=== PATIENT | male | born 1945 | race Caucasian/White ===

== ENCOUNTER → 2018-10-15 10:24 | Outpatient (CLI) | payer OTHER, SELFPAY ==
--- NOTE | 2018-10-15 15:06 | P.PCN_ITS ---
Cardiac Stress Test Report Referral & Results Date Patient Seen: 10/15/18 Requesting provider: Sruthi Cooney Indication: Chest pain, dyspnea, history CABG Rest ECG: Unremarkable except for frequent PVCs Procedure Note: Today following both written and verbal informed consent the patient was exercised according to a standard Vik protocol patient went for a total of 6 min 49 sec achieving a maximum heart rate of 143 maximum systolic blood pressure of 180. This is approximately 7.0 METS. Exercise was terminated at this point because of patient has severe dyspnea inability to continue. Patient was also given Cardiolite through a previously started Hep-Lock IV by the nuclear plant instrument technician approximately 1 minute prior to the cessation of exercise. Patient did have frequent multifocal PVCs including couplets triplets and a run of 4 in recovery Heart rate blood pressure response was normal During exercise patient it is conduction transitioned into a left bundle branch block pattern which persisted until his heart rate declined in recovery unit flip back to normal ventricular conduction Functional aerobic impairment rated 0 on the active scale Impression: No clear evidence of ischemia. Dysrhythmia and conduction change noted as above Excellent exercise capacity Perfusion imaging will be reported separately Patient clearly has COPD as well based on his clinical picture with wheezing dyspnea etc while exercising. Please note: Actual ECG tracings can be found in the PACS system.
--- NOTE | 2018-10-16 09:52 | DI.NM.S_ITS ---
DATE OF SERVICE: 10/15/2018 PROCEDURE: Exercise perfusion study. INDICATION: Chest pain with known history of coronary artery disease (CAD), status post re-do bypass surgery, hypertension, hyperlipidemia. RADIOPHARMACEUTICAL: 25.3 mCi technetium-99 Myoview IV was injected at stress and 14.2 mCi technetium-99 Myoview IV was injected at rest. CARDIAC STRESS: The patient underwent an exercise perfusion study under the supervision of an attending staff. He walked on Vik protocol for 6 minutes and 49 seconds and achieved 97% of target heart rate, normal blood pressure response, 7 minutes of workload, and 0% of functional aerobic impairment. The patient had significant shortness of breath. He was unable to continue on treadmill. Baseline rhythm was sinus. During exercise, the patient had frequent PVCs with occasional ventricular couplets without any significant sustained ventricular tachycardia. During exercise, the patient developed rate related aberrant conduction with wide QRS complexes, almost left bundle branch block type of pattern. At rest, the patient has narrow QRS complexes. RAW DATA: There was an increase of diaphragmatic activity. GATED STUDY: Stress and resting LV ejection fraction 63% without any significant wall motion abnormalities. No transient ischemic dilatation. TID ratio 1.08. Resting end-diastolic volume 121 mL. Lung/heart ratio is 0.54, which is abnormal. MYOCARDIAL PERFUSION: Stress supine, resting supine, and stress prone images were compared to each other. It appears to be that the patient has predominantly fixed small sized mildly decreased perfusion of the basal inferior wall extending into the basal inferior septum. No reversible ischemia. CONCLUSION: 1. No obvious reversible ischemia. 2. 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 The patient achieved 7 minutes of workload, walked on Vik protocol for 6 minutes 49 seconds. Aberrant conduction during exercise with intermittent PVCs without any sustained ventricular tachycardia. No obvious transient ischemic dilatation, but lung/heart ratio is abnormal, which is 0.54, suggestive that the patient may have diastolic dysfunction or valvular pathology with increased LVEDP causing abnormal lung/heart ratio. We will recommend getting an echocardiogram to rule out valvular pathology or significant diastolic dysfunction. Clinical correlation is recommended. Killian Lockhart - JEANMARIE/elaine/ts doc#: [id number]/job#: [id number] dd: 10/15/2018 17:06:00 dt: 10/16/2018 09:35:00 DICTATING MD/COPIES TO: Hemant Monteiro MD COPIES MNE: DEMETRIA
== END ==
PROVIDERS: Family Provider Internal Medicine; PCP Internal Medicine; Visit Provider Internal Medicine
DX: R07.9 Chest pain, unspecified (principal); I25.10 Atherosclerotic heart disease of native coronary artery without angina pectoris; I10 Essential (primary) hypertension; E78.5 Hyperlipidemia, unspecified; R06.00 Dyspnea, unspecified; I49.3 Ventricular premature depolarization; J44.9 Chronic obstructive pulmonary disease, unspecified; Z95.1 Presence of aortocoronary bypass graft
CPT/HCPCS: 78452; 93016; 93017; 93018; A9502

== ENCOUNTER → 2021-01-14 11:57 | Outpatient (CLI) | payer MEDICARE, SELFPAY ==
[2021-01-14 12:51] LABS: Add Manual Diff / Slide Review NO; Basophils Absolute Auto 100 /uL (0-100); Basophils Percent Auto 0.8 % (0-2); Eosinophils Absolute Auto 300 /uL (0-450); Eosinophils Percent Auto 3.3 % (2-4); Hematocrit 42.5 % (41-53); Hemoglobin 14.4 g/dL (13.5-17.5); Lymphocytes Absolute Auto 2700 /uL (1100-4500); Lymphocytes Percent Auto 30.2 % (25-40); Mean Corpuscular HGB Conc 33.8 % (30-36); Mean Corpuscular Volume 91.6 fL (80-100); Monocytes Absolute Auto 700 /uL (0-900); Monocytes Percent Auto 8.2 % (3-14); Neutrophils Absolute Auto 5200 /uL (1500-7000); Neutrophils Percent Auto 57.5 % (50-75); Platelet Count 199 X10^3/uL (150-400); Red Blood Cell Count 4.64 X10^6/uL (4.5-5.9); Red Cell Distribution Width 13.7 % (11.6-14.8)
[2021-01-14 13:00] LABS: Hemoglobin A1C% w Est Avg Glu 5.7 % (4.0-6.0)
[2021-01-14 15:24] LABS: Alanine Aminotransferase 21 IU/L (<50); Albumin 4.2 g/dL (3.5-5.0); Albumin Globulin Ratio 1.6 (1.0-2.8); Alkaline Phosphatase 79 U/L (38-126); Aspartate Aminotransferase 30 IU/L (17-59); BUN Creatinine Ratio 23.7 (6-22); Bilirubin Total 0.7 mg/dL (0.2-1.3); Blood Urea Nitrogen 18 mg/dL (9-20); Calcium 9.7 mg/dL (8.4-10.2); Carbon Dioxide 29 mmol/L (22-32); Chloride 104 mmol/L (98-107); Cholesterol 182 mg/dL (140-199); Estimated Glomerular Filt Rate > 60.0 mL/min (>60); Globulin 2.7 g/dL (1.7-4.1); Glucose 106 mg/dL (80-110); HDL Cholesterol 54 mg/dL (40-60); HEMOLYSIS < 15 (0-50); LDL Cholesterol Calculated 106 mg/dL (<100); Magnesium 1.8 mg/dL (1.6-2.3); Potassium 4.5 mmol/L (3.4-5.1); Sodium 138 mmol/L (137-145); Total Protein 6.9 g/dL (6.3-8.2); Triglycerides 112 mg/dL (35-150)
[2021-01-14 16:17] LABS: TSH w/ Reflex to FT4 1.78 uIU/mL (0.47-4.68)
== END ==
PROVIDERS: Family Provider Internal Medicine; PCP Internal Medicine; Referring Provider Internal Medicine; Visit Provider Internal Medicine
DX: I10 Essential (primary) hypertension (principal); E11.9 Type 2 diabetes mellitus without complications; E78.00 Pure hypercholesterolemia, unspecified; R42 Dizziness and giddiness; R55 Syncope and collapse
CPT/HCPCS: 36415; 80053; 80061; 83036; 83735; 84443; 85025; 93005

== ENCOUNTER 2021-01-14 18:28 | Emergency (ER) | payer MEDICARE, SELFPAY ==
[2021-01-14 18:47] VITALS: BP 157/83; PULSE 69; RESP 17; TEMP 36.4; O2SAT 98
[2021-01-14 19:50] LABS: Bacteria Urine None Seen; RBC Urine None Seen (0-5/HPF)
[2021-01-14 19:51] LABS: Appearance Urine UA CLEAR; Bilirubin Urine UA NEGATIVE (NEGATIVE); Color Urine UA YELLOW; Glucose Urine UA NEGATIVE (Negative); Ketones Urine UA 1+ (NEGATIVE); Leukocyte Esterase Urine UA NEGATIVE (NEGATIVE); Nitrite Urine UA NEGATIVE (Negative); Occult Blood Urine UA NEGATIVE (Negative); Protein Urine UA NEGATIVE (Negative); Urobilinogen Urine UA 0.2 E.U./dL (0.2)
[2021-01-14 19:54] LABS: Creatine Kinase 57 U/L (55-170)
--- NOTE | 2021-01-14 19:55 | DI.RAD.S_ITS ---
PROCEDURE: XR CHEST 1V INDICATIONS: syncope TECHNIQUE: One view of the chest was acquired. COMPARISON: None. FINDINGS: Surgical changes and devices: Remote CABG. Lungs and pleura: Lungs are clear. No pleural effusions or pneumothorax. Mediastinum: Mediastinal contours appear normal. Heart size is normal. Bones and chest wall: No suspicious bony lesions. Overlying soft tissues appear unremarkable. IMPRESSION: No evidence acute pulmonary process. Dictated by: Ilan Dugan M.D. on 01/14/2021 at 20:46 Approved by: Ilan Dugan M.D. on 01/14/2021 at 20:47
[2021-01-14 20:05] LABS: Squamous Epithelial Cell Urine 0-1 /HPF (0-5/HPF); WBC Urine 0-1/HPF (0-5/HPF)
[2021-01-14 20:06] LABS: Culture Indicated Urine Cult Not Indicated
[2021-01-14 20:07] LABS: Troponin I < 0.012 ng/mL (0.01-0.034)
--- NOTE | 2021-01-14 20:59 | PC.NURSE ---
states it was yesterday, pt was getting up and down quickly preparing to leave the house and when he sat in the chair, he started snoring and didn't respond to son 15 seconds.
[2021-01-14 21:34] VITALS: O2SAT 95
[2021-01-14 21:35] VITALS: BP 156/79; PULSE 81; O2SAT 95
[2021-01-14 21:37] VITALS: BP 156/79
--- NOTE | 2021-01-14 21:51 | ED_ITS ---
HPI - Syncope General Chief Complaint: Syncope Stated Complaint: Seen earlier, back for further tx Time Seen by Provider: 01/14/21 18:54 Source: patient and family (son) Mode of arrival: Ambulatory Limitations: no limitations History of Present Illness HPI narrative: This is a 75-year-old male who had a 12nd syncopal episode witnessed by his son yesterday morning. He states he had sat down and is table to put his shoes on. Lost consciousness for about 15 seconds and fell back into the chair and then regained consciousness almost immediately. Patient was immediately talking with his son. He states he would not have even realized he passed of his son had not been present. Patient states he had not eaten that day, he had not had much to drink. He had been very active that morning. He denies any symptoms prior to the event. He denies any symptoms afterwards other than some mild dizziness. He has felt normal today. He does have a history of a CABG with 2 vessels in 2004. He had a stress test in 2019. Patient has a known left bundle marlyn block. He has not had prior syncopal episodes. He went to his primary care who ordered lab work and an EKG which did not look like his prior EKG so he was sent to the ER for repeat EKG. Related Data Home Medications Medication Instructions Recorded Confirmed ASPIRIN (Aspirin EC) 81 mg PO Q DAY #0 09/03/12 B.ANI/L.ACI/L.JOSE/L.PLAN/L.MICHELLE 1 cap PO Q DAY #0 09/03/12 (Probiotic Formula Capsule) Coenzyme Q10 (#CO ENZYME Q-10) 100 mg PO Q DAY #0 09/03/12 PREPARATION H - 27 gm TOPICAL PRN #0 09/03/12 (#PREPARATION H) [happy light] #0 09/03/12 allopurinol 300 mg PO QDAY #0 09/03/12 cholecalciferol (vitamin D3) 6,000 iu PO Q DAY #0 09/03/12 [Vitamin D3] FOLIC ACID/VIT A/VIT B1/VIT 1 tab PO Q DAY #0 09/06/12 (#MULTIVITAMIN) [saw palmeto] 1 tab PO Q DAY #0 09/06/12 rosuvastatin [Crestor] 20 mg PO QDAY #0 03/08/13 carvedilol [Coreg] 6.25 mg PO BID #0 09/23/17 Allergies Allergy/AdvReac Type Severity Reaction Status Date / Time Sulfa (Sulfonamide Allergy Unknown Unverified 02/24/18 11:57 Antibiotics) [SULFA (SULFONAMIDE ANTIBIOTICS)] Ribpaiv-Aje-Wjj Reductase AdvReac Intermediate Unverified 02/24/18 11:57 Inhibitor [QUUQJNZ-[id number]-[id number] REDUCTASE INHIBITOR] Review of Systems Review of Systems ROS Unobtainable: All systems reviewed & are unremarkable except as noted in HPI and below Patient History Social History Smoking Status: Never smoker Smoking Status: Never smoker alcohol intake frequency: other Substance Use Type: does not use Exam Narrative Exam Narrative: GENERAL: Alert and oriented x three, well-nourished male in mild distress. Patient is ambulating around the room when I walk in. He been walking the department several times while awaiting evaluation. HEENT: Head normocephalic, atraumatic, EOMI, pupils reactive, face symmetric, moist mucous membranes NECK: Supple, full range of motion CARDIOVASCULAR: Regular rate and rhythm without murmurs, rubs or gallops. No JVD. RESPIRATORY: Breath sounds equal bilaterally, no wheezes rales or rhonchi. ABDOMEN: Soft, nontender. Normoactive bowel sounds all 4 quadrants. No guarding or rebound, rigidity, no mass : No CVA tenderness EXTREMITIES: Normal range of motion, no edema. Neurovascularly intact NEUROLOGICAL: Cranial nerves II through XII grossly intact. Moving all extremities SKIN: Warm, dry, no petechiae, no rashes or lesions. Initial Vital Signs Initial Vital Signs: Vital Signs Temperature 97.6 F 01/14/21 18:47 Pulse Rate 69 01/14/21 18:47 Respiratory Rate 17 01/14/21 18:47 Blood Pressure 157/83 H 01/14/21 18:47 Pulse Oximetry 98 01/14/21 18:47 Course Orders Ordered: ED Orders 01/14/21 19:35 Troponin & CK Cardiac Panel Stat 01/14/21 19:39 Urinalysis and Microscopic Stat 01/14/21 19:55 XR chest 1V Stat Vital Signs Vital signs: Vital Signs - 8 hr 01/14/21 21:34 01/14/21 21:35 01/14/21 21:37 Pulse Rate 81 Blood Pressure 156/79 H 156/79 H Pulse Oximetry 95 95 MDM - Syncope Lab Data Attestation: I reviewed the patient's lab results. Labs: Lab Results 01/14/21 01/14/21 Range/Units 19:35 19:39 Total Creatine Kinase 57 (55-170) U/L CK-MB (CK-2) TNP CK-MB (CK-2) Rel Index TNP Troponin I < 0.012 (0.01-0.034) ng/mL Urine Color Yellow Urine Appearance Clear Urine pH 6.0 (4.5-8.0) Ur Specific Shepherd 1.020 (1.000-1.035) Urine Protein Negative (Negative) Urine Glucose (UA) Negative (Negative) g/dL Urine Ketones 1+ H (NEGATIVE) Urine Occult Blood Negative (Negative) Urine Nitrate Negative (Negative) Urine Bilirubin Negative (NEGATIVE) Urine Urobilinogen 0.2 (0.2) E.U./dL Ur Leukocyte Esterase Negative (NEGATIVE) Urine RBC None seen (0-5/HPF) Urine WBC 0-1/hpf (0-5/HPF) Ur Squamous Epith Cells 0-1 /hpf (0-5/HPF) Urine Bacteria None seen (None) Ur Culture Indicated? Cult not indicated Imaging Data Chest x-ray: Radiologist's Impression: [address] [id number] ReportSigned Patient: Killian Lockhart NMR#: [id number]: 4Acct:[id number]/Sex: 75 / MDate of Service: 01/14/21Loc: EDAccession Number: [id number] Procedure: XR chest 1V Ordering Provider: Gay Oliveira D.O. PROCEDURE: XR CHEST 1V INDICATIONS: syncope TECHNIQUE: One view of the chest was acquired. COMPARISON: None. FINDINGS: Surgical changes and devices: Remote CABG. Lungs and pleura: Lungs are clear. No pleural effusions or pneumothorax. Mediastinum: Mediastinal contours appear normal. Heart size is normal. Bones and chest wall: No suspicious bony lesions. Overlying soft tissues appear unremarkable. IMPRESSION: No evidence acute pulmonary process. Dictated by: Ilan Dugan M.D. on 01/14/2021 at 20:46 Approved by: Ilan Dugan M.D. on 01/14/2021 at 20:47 ECG Data Attestation: I personally reviewed and interpreted this ECG as follows: Interpretation: Left bundle branch block, normal sinus rhythm left axis deviation. Rate 81 IA 182 QRS of 146 and QTC of 490. MDM Narrative Medical decision making narrative: This is a 75-year-old male the syncopal episode for 24 hours ago. Patient states that it was a very short episode witnessed, no other acute neurologic changes. His only symptoms worsen mild dizziness immediately afterwards. Patient does have a known cardiac history. He is mildly hypertensive here in the department. His labs from this morning including a CBC and CMP were negative. Checks x-ray shows new acute processes. EKG shows left bundle branch block which patient is aware of and tells me about himself. His urinalysis is negative except for ketones. Troponin is negative and was greater than 24 hours since symptom onset I would not repeat this. We did discuss he should follow up with his physician it may be worth having a ZIO patch or Holter monitor. We did discuss that he may have been a little dehydrated. His physician instructed him not to take his Lasix today, and he has been attempting to orally hydrate. At this time he has been able to ambulate department for some time with no additional symptoms plan for follow-up with primary care. Discharge Plan Departure Patient Disposition: Home Clinical Impression: Syncope Instructions: DI for Syncope in Adults (Fainting) Activity Restrictions/Additional Instructions: Follow up with your physician this week, discussed having a Holter monitor or ziopatch if they feel it is appropriate. Continue home medications as prescribed. Make sure you are drinking plenty of fluids, urine showed ketones which shows early little bit dehydrated. Return to the ER for fevers, recurrent passing out, lightheadedness or dizziness, severe headaches, new chest pain, shortness of breath, new swelling in her extremities new or concerning symptoms. Prescriptions: No Action allopurinol 300 MG tablet 300 mg PO QDAY Qty: 0 RF: 0 [happy light] Qty: 0 RF: 0 ASPIRIN (Aspirin EC) 81 mg PO Q DAY Qty: 0 RF: 0 Coenzyme Q10 (#CO ENZYME Q-10) 100 mg PO Q DAY Qty: 0 RF: 0 B.ANI/L.ACI/L.JOSE/L.PLAN/L.MICHELLE (Probiotic Formula Capsule) 1 cap PO Q DAY Qty: 0 RF: 0 PREPARATION H - (#PREPARATION H) 27 gm Topical PRN Qty: 0 RF: 0 cholecalciferol (vitamin D3) [Vitamin D3] 2,000 UNIT capsule 6,000 iu PO Q DAY Qty: 0 RF: 0 FOLIC ACID/VIT A/VIT B1/VIT (#MULTIVITAMIN) 1 tab PO Q DAY Qty: 0 RF: 0 [saw palmeto] 1 tab PO Q DAY Qty: 0 RF: 0 rosuvastatin [Crestor] 20 MG tablet 20 mg PO QDAY Qty: 0 RF: 0 carvedilol [Coreg] 6.25 MG tablet 6.25 mg PO BID Qty: 0 RF: 0 Referrals: Maribel Neely MD [Physician] - Sruthi Cooney MD [Primary Care Provider] -
== END 2021-01-14 22:29 | disposition home or self-care (01) ==
PROVIDERS: Emergency Provider Emergency Medicine; Family Provider Internal Medicine; PCP Internal Medicine
DX: R55 Syncope and collapse (principal); R07.9 Chest pain, unspecified; I10 Essential (primary) hypertension; E78.00 Pure hypercholesterolemia, unspecified; E11.9 Type 2 diabetes mellitus without complications; R42 Dizziness and giddiness
CPT/HCPCS: 36415; 71045; 80053; 80061; 81001; 82550; 83036; 83735; 84443; 84484; 85025; 93005; 99283; 99284

== ENCOUNTER → 2021-01-18 11:54 | Outpatient (CLI) | payer MEDICARE, SELFPAY ==
--- NOTE | 2021-01-18 11:57 | DI.CT.S_ITS ---
PROCEDURE: CT ABDOMEN PELVIS W CON INDICATIONS: Constipation, unspecified TECHNIQUE: After the administration of oral and intravenous contrast, 5 mm thick sections acquired from the diaphragms to the symphysis. 5 mm thick coronal and sagittal reformats were performed. For radiation dose reduction, the following was used: automated exposure control, adjustment of mA and/or kV according to patient size. COMPARISON: Outside Film, US, US RENAL COMPLETE, 12/15/2019, 14:59. FINDINGS: Image quality: Excellent. ABDOMEN: Lung bases: Mild streaky opacity at the right lung base. Right lung base pulmonary nodule measuring 2 mm, (2/10). Heart size is prominent. Post median sternotomy. Asymmetric elevation of the right hemidiaphragm. Solid organs: Liver is normal in size and enhancement. Gallbladder is unremarkable. Biliary system is non-dilated. Pancreas enhances normally. Spleen is normal in size and enhancement. No adrenal nodules. Kidneys are normal in size and enhancement, without hydronephrosis. Bilateral extrarenal pelvises. Left kidney cortical hypodensity too small to further characterize. Peritoneum and bowel: Stomach, small bowel, and colon loops are normal in caliber and wall thickness. Diverticulosis. The appendix is within normal limits in caliber measuring 0.6 cm. No free fluid or air. Nodes and vessels: No retroperitoneal or mesenteric adenopathy. Aorta and inferior vena cava are normal in caliber. Circumferential calcified atherosclerotic plaque. Accessory inferior left renal artery. Miscellaneous: Subxiphoid fat containing ventral abdominal wall hernia. PELVIS: Genitourinary: Bladder is unremarkable. Prosthetic calcifications. Miscellaneous: Question of right spermatic cord lipomatous hypertrophy versus inguinal hernia. adenopathy. Bones: No suspicious bony lesions. Degenerative change in DDD. No vertebral body compression fractures. IMPRESSION: No bowel obstruction. No free fluid. Diverticulosis without diverticulitis. Dictated by: Ger Nguyen M.D. on 01/18/2021 at 13:56 Approved by: Ger Nguyen M.D. on 01/18/2021 at 14:05
== END ==
PROVIDERS: Family Provider Internal Medicine; PCP Internal Medicine; Referring Provider Internal Medicine; Visit Provider Internal Medicine
DX: K59.00 Constipation, unspecified (principal); K57.90 Diverticulosis of intestine, part unspecified, without perforation or abscess without bleeding
CPT/HCPCS: 74177; Q9967

== ENCOUNTER → 2021-03-25 09:10 | Outpatient (CLI) | payer MEDICARE, SELFPAY ==
[2021-03-25 13:01] LABS: COVID19 -Nasal RAPID Negative (Negative)
== END ==
PROVIDERS: Family Provider Internal Medicine; PCP Internal Medicine; Visit Provider Family Medicine Sleep Medicine
DX: Z20.822 Contact with and (suspected) exposure to COVID-19 (principal)
CPT/HCPCS: 87635; C9803

== ENCOUNTER → 2021-07-15 09:00 | Outpatient (CLI) | payer MEDICARE, SELFPAY | PROVIDERS: Family Provider Internal Medicine; PCP Internal Medicine; Referring Provider Surgery; Visit Provider Surgery | DX: Z20.822 Contact with and (suspected) exposure to COVID-19 (principal) | CPT/HCPCS: 87635 ==

== ENCOUNTER 2021-07-16 06:38 | Day surgery (SDC) | payer MEDICARE, SELFPAY ==
[2021-07-10 07:19] VITALS: BMI 28.1
[2021-07-15 12:28] LABS: COVID19 -Nasal RAPID Negative (Negative)
[2021-07-16] MEDS: LACTATED RINGERS 1,000 ML 42 ML IV (07:14)
[2021-07-16 07:15] VITALS: BP 155/78; PULSE 72; RESP 20; TEMP 36.4; O2SAT 96; BMI 28.1
--- NOTE | 2021-07-16 07:42 | PM.PREOP ---
Pre-operative Note Interval Note History & Physical reviewed/Exam performed by Physician: Yes Changes to H&P: No
[2021-07-16] MEDS: CEFAZOLIN 1 GM VIAL 2 GM IV (07:58)
[2021-07-16] MEDS: BUPIVACAINE 0.25% (PF) VIAL 30 ML INJ (08:14)
[2021-07-16 09:10] VITALS: BP 132/51; PULSE 66; RESP 12; TEMP 36.4; O2SAT 96
--- NOTE | 2021-07-16 09:15 | P.OP_ITS ---
Operative Date/Time/Diagnoses Date of procedure: 07/16/21 Time of procedure: 09:15 Pre-op diagnosis: right inguinal hernia Post-op diagnosis: same Procedure & Clinicians Procedure: open right inguinal hernia repair Same procedure as scheduled: Yes Indications: reducible inguinal hernia Surgeon: Angelo Lu Yes if Unassisted: Yes Anesthesia Type: General Operative Notes Findings: direct floor defect and indirect hernia Estimated Blood Loss (mL): 20 Procedure in detail: The patient was placed supine on the table and bilateral lower extremity compression devices were applied. Anesthesia was induced they were intubated with an LMA and received 2g of Ancef. A time-out was performed. They were prepped and draped in sterile fashion. The right external inguinal ring and the anterior superior iliac crest were identified and marked. 1 finger breath above the inguinal ligament the skin was infiltrated with 0.25% bupivacaine. The skin incision was made here and the subcutaneous tissues were divided with electrocautery exposing the external oblique aponeurosis which was then opened along the direction of its fibers. Using blunt dissection the internal oblique aporneurosis was from the external oblique upper leaflet to identify the iliohypogastric nerve. Using a kittner the cord was carefully dissected away from the inguinal canal adjacent to the pubic tubercle. The cord including the vas deferens, testicular bloody supply, ilioguinal and genital nerve were encircled with a Niles drain. A small direct floor defect was identified and it was reduced into the abdomen and the internal oblique aporneuorsis was approximated to the inguinal ligament with Ethibond suture to reapproximate the floor. The cremasteric fibers surrounding the cord were divided using electrocautery adjacent to the internal ring.. The vas deferens and the testicular vessels were preserved and protected. There was a moderate size indirect hernia on the anterior medial aspect of the cord which was skeletonized away from the vas deferens and testicular blood supply. The indirect hernia sac was ligated with silk suture amputated and the remnant reduced spontaneously into the abdomen. I selected a 7x 15 cm lightweight Pro Loop hernia mesh. The inferior medial aspect of the mesh was anchored to insert ion of the rectus muscle to the pubic tubercle such that there was approximately 2 cm of tubercle overlap with Ethibond and then was run continuously along the inferior edge of the mesh to the shelving edge of the inguinal ligament. Interrupted 3 0 Vicryl suture was used to anchor the superior aspect of the mesh to the conjoined tendon in several places. The tails were then reapproximated loosely around the spermatic cord. The tails of the mesh were then tucked under the external oblique aponeurosis. The repair was checked for hemostasis. The wound was irrigated with sterile saline. The external oblique aponeurosis was reapproximated in a running fashion using 3 0 Vicryl. The subcutaneous tissues were reapproximated with 3 0 Vicryl skin closed with 4 0 Monocryl followed by the application of Dermabond. At the end of the operation I ensured that both testicles were within the scrotum. The sponge instrument count at the end operation was correct. The patient emerged from anesthesia was extubated and transferred to the postoperative care unit in stable condition. A total of 30 ml of of 0.25% bupivicaine was used to infiltrate the skin. Complications: none Post-operative Condition: stable Disposition: same day surgery
[2021-07-16 09:17] VITALS: BP 124/59; PULSE 65; RESP 15; O2SAT 98
[2021-07-16 09:20] VITALS: BP 122/59; PULSE 63; RESP 15; O2SAT 97
[2021-07-16 09:25] VITALS: BP 122/59; PULSE 78; RESP 19; TEMP 36.5; O2SAT 98
[2021-07-16 09:35] VITALS: BP 137/49; PULSE 58; RESP 12; TEMP 36.4; O2SAT 100
== END 2021-07-16 09:56 | disposition home or self-care (01) ==
PROVIDERS: Family Provider Internal Medicine; PCP Internal Medicine; Referring Provider Surgery; Visit Provider Surgery
PROC: (CPT 49505; principal; 2021-07-16 07:45)
DX: K40.90 Unilateral inguinal hernia, without obstruction or gangrene, not specified as recurrent (principal); Z01.812 Encounter for preprocedural laboratory examination; Z20.822 Contact with and (suspected) exposure to COVID-19; E11.9 Type 2 diabetes mellitus without complications; J45.909 Unspecified asthma, uncomplicated; G47.33 Obstructive sleep apnea (adult) (pediatric); I73.9 Peripheral vascular disease, unspecified; I11.0 Hypertensive heart disease with heart failure; I50.41 Acute combined systolic (congestive) and diastolic (congestive) heart failure; I25.10 Atherosclerotic heart disease of native coronary artery without angina pectoris; Z95.1 Presence of aortocoronary bypass graft
CPT/HCPCS: 49505; 82962; C1781; J0690; J2405; J2704; J3010

== ENCOUNTER → 2021-11-06 08:15 | Outpatient (CLI) | payer MEDICARE, SELFPAY ==
--- NOTE | 2021-11-06 | DI.RAD.S_ITS ---
PROCEDURE: XR DEXA AXIAL SKELETON INDICATIONS: Testicular hypofunction COMPARISON: None. FINDINGS: This blank DEXA report has been sent in error by the PACS system. The correct and complete report will be forthcoming in 1-2 days. Thank you for your patience and understanding. Dictated by: Brianna Jc MD, PhD on 11/06/2021 at 14:33 Approved by: Brianna Jc MD, PhD on 11/06/2021 at 14:33
== END ==
PROVIDERS: Family Provider Internal Medicine; PCP Internal Medicine; Referring Provider Internal Medicine; Visit Provider Internal Medicine
DX: M85.852 Other specified disorders of bone density and structure, left thigh (principal); E29.1 Testicular hypofunction; Z13.820 Encounter for screening for osteoporosis; Z87.891 Personal history of nicotine dependence
CPT/HCPCS: 77080

== ENCOUNTER → 2021-12-04 12:01 | Outpatient (CLI) | payer MEDICARE, SELFPAY ==
[2021-12-04 13:52] LABS: BUN Creatinine Ratio 23.6 (6-22); Blood Urea Nitrogen 17 mg/dL (9-20); Calcium 9.4 mg/dL (8.4-10.2); Carbon Dioxide 28 mmol/L (22-32); Chloride 106 mmol/L (98-107); Estimated Glomerular Filt Rate > 60.0 mL/min (>60); Glucose 103 mg/dL (80-110); HEMOLYSIS < 15 (0-50); Potassium 4.5 mmol/L (3.4-5.1); Sodium 140 mmol/L (137-145)
== END ==
PROVIDERS: Family Provider Internal Medicine; PCP Internal Medicine; Referring Provider Surgery; Visit Provider Surgery
DX: R10.31 Right lower quadrant pain (principal)
CPT/HCPCS: 36415; 80048; 99212

== ENCOUNTER → 2022-01-15 11:07 | Outpatient (CLI) | payer MEDICARE, SELFPAY ==
--- NOTE | 2022-01-15 11:09 | DI.US.S_ITS ---
PROCEDURE: US ABDOMEN LIMITED INDICATIONS: Right groin pain TECHNIQUE: Real-time focused scanning was performed of the abdomen, with image documentation. COMPARISON: None. FINDINGS: Technically suboptimal study secondary to patient's prior surgical intervention. No definite hernia is seen at rest or with Valsalva maneuver. IMPRESSION: 1. No definite inguinal hernia, although the exam is limited secondary to the patient's prior mesh surgery. Consider CT of the pelvis with Valsalva maneuver for further evaluation. Dictated by: Alanna Garcia M.D. on 01/15/2022 at 15:44 Approved by: Alanna Garcia M.D. on 01/15/2022 at 15:45
== END ==
PROVIDERS: Family Provider Internal Medicine; PCP Internal Medicine; Referring Provider Surgery; Visit Provider Surgery
DX: R10.31 Right lower quadrant pain (principal)
CPT/HCPCS: 76705

== ENCOUNTER → 2022-01-30 16:36 | Outpatient (CLI) | payer MEDICARE, SELFPAY ==
[2022-01-30 17:11] LABS: BUN Creatinine Ratio 19.1 (6-22); Blood Urea Nitrogen 18 mg/dL (9-20); Estimated Glomerular Filt Rate > 60.0 mL/min (>60)
== END ==
PROVIDERS: Family Provider Internal Medicine; PCP Internal Medicine; Referring Provider Surgery; Visit Provider Surgery
DX: R10.31 Right lower quadrant pain (principal)
CPT/HCPCS: 36415; 82565; 84520

== ENCOUNTER → 2022-02-04 10:48 | Outpatient (CLI) | payer MEDICARE, SELFPAY ==
--- NOTE | 2022-02-04 11:54 | DI.CT.S_ITS ---
PROCEDURE: CT ABDOMEN PELVIS W CON INDICATIONS: right groin pain TECHNIQUE: After the administration of oral and IV contrast, axial sections were acquired from the lung bases to the pubic symphysis. Coronal and sagittal reformats were performed. For radiation dose reduction, the following was used: automated exposure control, adjustment of mA and/or kV according to patient size. COMPARISON: [facility], CT, CT ABDOMEN PELVIS W CON, 01/18/2021, 12:55. FINDINGS: Image quality: Excellent. Lung bases: Unremarkable. Heart: No significant findings. ABDOMEN: Liver: Unremarkable. Gallbladder: Unremarkable. Biliary ducts: Unremarkable. Pancreas: Unremarkable. Spleen: Unremarkable. Adrenal Glands: Unremarkable. Kidneys and Ureters: Unremarkable. Stomach and Bowel: Stomach, small bowel loops, and colon are unremarkable. Colonic diverticulosis is seen, without findings of active diverticulitis. Peritoneum: No abnormal intraperitoneal fluid. No free air. Ventral Wall: No hernia. Abdominal Nodes: No retroperitoneal or mesenteric adenopathy by size criteria. Vessels: Aorta and inferior vena cava are normal in size. Atherosclerotic calcification is noted. Incidental note is made of a circumaortic left renal vein. PELVIS: Pelvic Organs: Unremarkable. Bladder: Unremarkable. Pelvic Nodes: No enlarged lymph nodes. Miscellaneous: Bilateral fat containing inguinal hernias are seen. Bones: Unremarkable. IMPRESSION: A cause of right groin pain is not identified. If it would be helpful for clinical management decision making, please consider a dedicated hip MRI for further evaluation (assuming that there is no contraindication). If there is strong clinical concern for a labral abnormality, this should be performed according to the arthrogram protocol. Incidental note is made of: Circumaortic left renal vein Diverticulosis, without active diverticulitis Bilateral fat containing inguinal hernias Dictated by: Caleb Estrada M.D. on 02/04/2022 at 16:13 Approved by: Caleb Estrada M.D. on 02/04/2022 at 16:15
== END ==
PROVIDERS: Family Provider Internal Medicine; PCP Internal Medicine; Referring Provider Surgery; Visit Provider Surgery
DX: R10.31 Right lower quadrant pain (principal); K57.90 Diverticulosis of intestine, part unspecified, without perforation or abscess without bleeding; K40.20 Bilateral inguinal hernia, without obstruction or gangrene, not specified as recurrent
CPT/HCPCS: 74177

== ENCOUNTER → 2022-06-17 09:48 | Outpatient (CLI) | payer MEDICARE, SELFPAY ==
[2022-06-17 12:02] LABS: COVID19 -Nasal RAPID Negative (Negative)
== END ==
PROVIDERS: Family Provider Internal Medicine; PCP Internal Medicine; Visit Provider Surgery
DX: Z20.822 Contact with and (suspected) exposure to COVID-19 (principal); Z01.812 Encounter for preprocedural laboratory examination
CPT/HCPCS: 87635; C9803

== ENCOUNTER 2022-06-18 08:46 | Day surgery (SDC) | payer MEDICARE, SELFPAY ==
[2022-06-18] VITALS (9 sets, daily range): BP systolic 124–154; BP diastolic 58–86; PULSE 67–81; RESP 12–20; TEMP 36.2–36.6; O2SAT 94–99; BMI 27.2
--- NOTE | 2022-06-18 09:19 | PM.HP.1 ---
History of Present Illness History of Present Illness Date Patient Seen: 06/18/22 Time Patient Seen: 09:19 Chief complaint: LAP RIH REPAIR Narrative: 76-year-old man who is here for a elective laparoscopic right inguinal hernia repair. He had a previous open right inguinal hernia repair subsequently had a fall with a recurrence of his hernia. He is feeling well today without complaint. 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 (09/03/12) Vitamin D deficiency, unspecified (09/03/12) Surgical History H/O vasectomy S/P CABG x 2 (2002) S/P cervical spinal fusion Family & Social History Family History Father Hypertension Heart disease Mother Obesity Diabetes mellitus Family/Other Diabetes mellitus Family/Other Anxiety Social History: household members spouse Tobacco & Substance use: Smoking Status Former smoker alcohol intake current alcohol intake frequency 0-2 drinks per day Substance Use Type does not use Meds Home Medications and Allergies Home Medications Medication Instructions Recorded Confirmed Type aspirin 81 mg tablet,delayed 81 mg PO Q DAY ##0 09/03/12 06/18/22 History release (Hafsa Low Dose Aspirin) carvedilol 6.25 mg tablet (Coreg) 6.25 mg PO BID ##0 09/23/17 06/18/22 History budesonide-formoterol HFA 80 2 puff inhalation BID 02/18/21 06/18/22 History mcg-4.5 mcg/actuation aerosol inhaler (Symbicort) furosemide 20 mg tablet 20 mg PO DAILY 02/18/21 06/18/22 History indomethacin 25 mg capsule 25 mg PO DAILY PRN Pain 02/18/21 06/18/22 History inhaler,assist devices,access #1 ea 02/18/21 02/27/22 History (Optichamber Adult Mask-Large) losartan 25 mg tablet 25 mg PO DAILY 02/18/21 06/18/22 History pravastatin 20 mg tablet 20 mg PO DAILY 02/18/21 06/18/22 History tiotropium bromide 2.5 2 puff inhalation DAILY 02/18/21 06/18/22 History mcg/actuation mist for inhalation (Spiriva Respimat) acetaminophen 325 mg capsule 650 mg PO QID PRN pain #60 caps 07/16/21 06/18/22 Rx (Tylenol) docusate sodium 100 mg capsule 100 mg PO BID #30 caps 07/16/21 06/18/22 Rx (Colace) Allergies Allergy/AdvReac Type Severity Reaction Status Date / Time Sulfa (Sulfonamide Allergy Unknown Confusion Verified 06/18/22 09:06 Antibiotics) [SULFA (SULFONAMIDE ANTIBIOTICS)] [id number] Reductase AdvReac Intermediate Verified 06/18/22 09:06 Inhibitor [[id number] REDUCTASE INHIBITOR] Exam Narrative Exam Narrative: General adult male alert oriented no acute distress Abdomen right groin marked with my initials. Reducible right inguinal hernia. Assessment & Plan Assessment and plan (1) Recurrent right inguinal hernia: Status: Acute Assessment & Plan narrative: 76-year-old man with a recurrent right inguinal hernia here for a laparoscopic right inguinal hernia repair with mesh. Overview of the operation was again discussed with the patient. Operative risks including bleeding, infection, chronic pain, damage to surrounding structures were discussed. Questions have been answered and he is in agreement with this plan. Time Spent With Patient Critical Care time: I spent a total of [] minutes of critical care time on this patient's care today; this time is exclusive of procedural time.
--- NOTE | 2022-06-18 09:23 | PM.OP.1 ---
Operative Date/Time/Diagnoses Date of procedure: 06/18/22 Time of procedure: 09:24 Pre-op diagnosis: Recurrent right inguinal hernia Post-op diagnosis: same Procedure & Clinicians Procedure: Laparoscopic right inguinal hernia repair of recurrent hernia Same procedure as scheduled: Yes Indications: Recurrent inguinal hernia after an anterior repair Surgeon: Angelo Seymour Click Yes if Unassisted: Yes Anesthesia Type: General Operative Notes Findings: Moderate-size right indirect inguinal hernia Specimen(s): none sent Estimated Blood Loss (mL): 20 Procedure in detail: The patient was brought to the operating room and placed supine on the table. Bilateral sequential compression devices were applied. General anesthesia was induced and they were intubated with an endotracheal tube. A lyons cath was placed in sterile fashion. They received insert prior to skin incision. They were prepped and draped in sterile fashion. A time out was performed to ensure the correct patient, procedure and necessary equipment within the operating room. The skin was infiltrated with 0.25% bupivicaine. A 1 cm supra umbilical midline incision was made.The fascia sharply incised and the abdomen entered traumatically. A 10mm balloon port was placed and pneumoperitoneum was established at 15mm Hg. Inspection of the abdomen demonstrated no evidence of injury upon entry. Two 5 mm ports were then placed under direct visualization in the right and left lower quadrant lateral to the rectus muscle. A right indirect hernia was observed. There was no major left inguinal hernia. The peritoneum 4 cm superior to the deep inguinal ring between the medial umbilical ligament and the anterior superior iliac spine was incised. The medial preperitoneal dissection was carried out into the space of Retzius bluntly, the bladder was swept inferiorly, the pubis and Shay's ligament were identified. Next attention was turned towards the lateral aspect of the peritoneal flap. The preperitoneal fat with the testicular vessels was carefully dissected off the inferior peritoneal flap. Addressing the indirect hernia defect, the testicular vessels and the vas deferns were carefully dissected off the hernia sac which contained a moderate amount of incarcerated omentum. A large Bard 3D Max mesh was then placed into the abdomen and positioned such that the myopectineal orifice was completely covered with good overlap on all sides. The peritoneal flap was then repositioned back to its original position and a running barbed suture was used to close the defect such that no bowel could herniate into the preperitoneal space. The area was examined for hemostasis. The 5mm trocars were removed under direct visualization and pneumoperitoneum was deflated through the umbilical trocar, The fascia at the umbilicus was closed with 0-Vicryl in figure of 8 fashion, skin closed with 4-0 Monocyl followed by Dermabond. The sponge and instrument count at the end of the case was correct. Both testicles were entirely within the scrotum at the end of the case. The patient emerged from anesthsia was extubated and transferred to recovery in stable condition. Complications: none Post-operative Condition: stable Disposition: same day surgery
[2022-06-18] MEDS: LACTATED RINGERS 1,000 ML 100 ML IV (09:26)
[2022-06-18] MEDS: CEFAZOLIN 2 GM IN 0.9 % NACL 100 ML IV (09:50)
--- NOTE | 2022-06-18 10:21 | SUR.OPER ---
Supine on padded OR bed, head on pillow, arms padded and tucked at sides, legs uncrossed, safety belt at thigh, tape over blanket over lower legs.
[2022-06-18] MEDS: LIDOCAINE 1% 20 ML INJ (12:03)
[2022-06-18] MEDS: fentaNYL 100 MCG/2 ML INJ IV ×2 (12:28→12:33)
[2022-06-18] MEDS: OXYCODONE/ACETAMINOPHEN 5/325 TABLET 1 TAB PO (12:39)
[2022-06-18] MEDS: PHENAZOPYRIDINE 100 MG TABLET 200 MG PO (12:52)
--- NOTE | 2022-06-18 14:57 | SUR.PHASEII ---
Late entry: Pt voiced concern over no narcotic pain meds for home and that he regretted telling Dr. Seymour he did not want any. His was called at home to make sure he had none at home if needed. Dr. Seymour was informed, prescription sent to pharmacy per pt request. Assisted pt to dress, then pt used BR prior to d/c. He voided small amount of urine, stated burning still present, but improved and tolerable. Pt left unit in stable condition.
== END 2022-06-18 14:15 | disposition home or self-care (01) ==
PROVIDERS: Family Provider Internal Medicine; PCP Internal Medicine; Referring Provider Surgery; Visit Provider Surgery
PROC: 0YQ54ZZ Repair Right Inguinal Region, Percutaneous Endoscopic Approach (ICD-10-PCS; CPT 49651; principal; 2022-06-18 10:15)
DX: K40.91 Unilateral inguinal hernia, without obstruction or gangrene, recurrent (principal); I10 Essential (primary) hypertension; G47.33 Obstructive sleep apnea (adult) (pediatric); I44.7 Left bundle-branch block, unspecified
CPT/HCPCS: 49651; 49561; 82962; J0330; J0690; J1100; J2405; J2704; J3010

== ENCOUNTER → 2023-04-03 12:26 | Outpatient (CLI) | payer MEDICARE, SELFPAY ==
--- NOTE | 2023-04-03 12:27 | DI.US.S_ITS ---
PROCEDURE: US SCROTUM INDICATIONS: Scrotal swelling TECHNIQUE: Real-time scanning was performed of the scrotum and testicles, with image documentation. Color and pulse Doppler interrogation was performed of both testicles. COMPARISON: None. FINDINGS: Right: Testicle is normal in size at 2.2 x 3.9 x 3.6 cm, and homogenous in echotexture. Epididymis is normal in overall size and morphology. No significant hydrocele or varicoceles. Overlying scrotal skin is normal in thickness. Left: Testicle is normal in size at 1.9 x 3.2 x 3.7 cm, and homogeneous in echotexture. Epididymis is normal in overall size and morphology. No hydrocele or varicoceles. Overlying scrotal skin is normal in thickness. There is a 3.3 mm cyst at the rete testis on the left. Doppler: Color and pulse Doppler demonstrate normal and symmetric arterial flow in both testicles. IMPRESSION: No mass or inflammation is seen. No adjacent inguinal hernia is noted. Dictated by: Paul Brown M.D. on 04/03/2023 at 15:12 Approved by: Paul Brown M.D. on 04/03/2023 at 15:14
== END ==
PROVIDERS: PCP Internal Medicine; Referring Provider Surgery; Visit Provider Surgery
DX: N50.89 Other specified disorders of the male genital organs (principal)
CPT/HCPCS: 76870

== ENCOUNTER → 2025-07-25 16:24 | Outpatient (CLI) | payer MEDICARE, SELFPAY ==
--- NOTE | 2025-07-25 16:26 | DI.MRI.S_ITS ---
PROCEDURE: MR CERVICAL SPINE WO CON INDICATIONS: on going neck pain TECHNIQUE: Noncontrast sagittal T1 spin echo and T2 fast spin echo, sagittal STIR, foraminal oblique sagittal T2 fast spin echo, and axial gradient echo or T2 fast spin echo through the cervical spine. COMPARISON: None. FINDINGS: Image quality: Excellent. Alignment and Curvature: Reversal of the usual cervical lordosis centered at C6. Stepwise, mild, grade 1, anterolisthesis from C4-6. Mild, grade 1, retrolisthesis of C6 on C7. Bone Marrow: Discogenic degenerative bone marrow edema at C5-6 and C6-7. No suspicious, confluent, marrow replacing abnormality. Spinal Cord: Flattening of the cord secondary to degenerative changes at C6-7. No increased cord signal. Paraspinous Soft Tissues: No paravertebral masses. Prevertebral soft tissues are normal in thickness. C2-C3: Moderate spinal canal stenosis due to degenerate disc osteophyte complex, ligamentum flavum thickening. Moderate right and mild left neural foraminal stenosis due to uncovertebral and facet arthrosis. C3-C4: Mild spinal canal stenosis due to degenerate disc osteophyte complex, ligamentum flavum thickening, facet arthrosis. Bilateral moderate foraminal stenosis due to facet greater than uncovertebral arthrosis. C4-C5: Disc uncovering from anterolisthesis. No spinal canal stenosis. Severe left and mild right neural foraminal stenosis due to facet and uncovertebral arthrosis. C5-C6: Moderate spinal canal stenosis due to degenerate disc osteophyte complex and facet arthrosis. Left moderate and right mild neural foraminal stenosis due to facet and uncovertebral arthrosis. C6-C7: Moderate to severe spinal canal stenosis due to degenerate disc osteophyte complex, and ligamentum flavum thickening. Severe bilateral neural foraminal stenosis due to uncovertebral and facet arthrosis. C7-T1: Mild spinal canal stenosis due to degenerate disc osteophyte complex and facet arthrosis. Left moderate and right mild neural foraminal stenosis due to facet greater than uncovertebral arthrosis. IMPRESSION: 1. Stepwise grade 1 anterolisthesis from C4-C6 with grade 1 retrolisthesis of C6 on C7. 2. Multilevel spinal canal stenosis reaches moderate to severe at C6-7 and moderate at C5-6. 3. Multilevel neural foraminal stenosis is severe on the left at C4-5 and bilaterally at C6-7, otherwise as detailed above. Dictated by: Hira Sloan M.D. on 07/26/2025 at 8:45 Approved by: Hira Sloan M.D. on 07/26/2025 at 9:01
== END ==
PROVIDERS: PCP Internal Medicine; Referring Provider Internal Medicine; Visit Provider Nurse Practitioner Family
DX: M47.22 Other spondylosis with radiculopathy, cervical region (principal); M43.12 Spondylolisthesis, cervical region; M48.02 Spinal stenosis, cervical region
CPT/HCPCS: 72141